=== PATIENT | male | born 1940 ===

== ENCOUNTER 2025-08-04 10:37 | Outpatient (AMB) | payer MEDICARE, SELFPAY ==
--- NOTE | 2025-08-04 10:43 | A.OFFVIS_ITS ---
Intake Visit Reasons: PD, Lumb radic Allergies No Known Allergies Allergy (Verified 08/02/25 08:08) Medication List - Last Reconciled 08/04/25 by Tracie Hernandez MD acetaminophen 500 mg PO Q6H PRN aspirin 81 mg PO DAILY carbidopa-levodopa 25-100 mg 1 tab PO .q 3-4 hrs furosemide 20 mg PO BID metoprolol tartrate 100 mg PO BID pramipexole 0.25 mg PO BEDTIME simvastatin 20 mg PO DAILY tamoxifen 20 mg PO DAILY terazosin 5 mg PO BID tramadol 50 mg PO TID PRN HPI Comments Details: He feels a very slight worsening in balance and occasional drooling. No falls. Very slight intermittent tremor. Taking Carbi/ levodopa every 2.5 hrs for 7 doses. Not using a cane or walker at home , only in the grocery store or for long distance walking. Had a back procedure by Dr. Daniels for Low back pain. After the procedure there is no relief of pain and right leg collapsed and had a right foot drop. More difficulty walking since spinal fracture L2 around June 2023 and had cement put in . Using Tylenol and tramadol q8h. Leaks a bit of urine and uses a pad. Exercising almost every day now. He occasionally has appearance of slight twitch and tremor at the end of his dose. In the last 2 years his gait has changed and he tends to stumble and fall more has become stooped and his posture and scuffs his feet unless he pays attention and doesn't swing his arms and walking. His handwriting has improved. He has no trouble turning in bed or getting in and out of a chair or car. Sometimes he has slight hesitancy and word finding and stutters a bit and his voice has become lower volume no dysphagia or drooling. Several years ago he had a cervical discectomy for left C5-6 radiculopathy by . In 2019 he had decompression of lumbar spinal stenosis. 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 Difficulty getting to sleep?denies.? Difficulty maintaining sleep?denies? .? Urge to move legs?denies.? Teeth grinding?denies.? Shouting or Kicking during sleep?denies.? Abnormal behavior during sleep?denies.? Excessive sleep?denies.? Snoring?denies.? Daytime sleepiness?denies.? ?? General/Constitutional:? Change in appetite?denies.? Chills?denies.? Fatigue?denies.? Fever?denies .? Weight gain?denies.? Weight loss?denies.? ?? Ophthalmologic:? Blurred vision?denies.? Diminished visual acuity?denies.? ?? ENT:? Stuffiness?denies.? Decreased hearing?admits.? Dry mouth?denies.? Ear pain?denies.? Nosebleed?denies.? Ringing in the ears?denies.? Sinus pain?denies .? Sore throat?denies.? Swollen glands?denies.? ?? Endocrine:? Cold intolerance?denies.? Excessive thirst?denies.? Frequent urination? denies.? Heat intolerance?denies.? ?? Respiratory:? Shortness of breath?denies.? Chest pain?denies.? Cough?denies.? ?? Breast:? Breast lump?denies.? Nipple discharge?denies.? ?? Cardiovascular:? Chest pain at rest?denies.? Chest pain with exertion?denies.? Claudication?denies.? Dizziness?denies.? Fluid accumulation in the legs?denies.? Irregular heartbeat?denies.? Palpitations?denies.? ?? Gastrointestinal:? Abdominal pain?denies.? Constipation?denies.? Diarrhea?denies.? Difficulty swallowing?denies.? Heartburn?denies.? Nausea?denies.? Rectal bleeding?denies.? ?? Hematology:? Easy bruising?admits.? Prolonged bleeding?denies.? ?? Genitourinary:? Frequent urination?denies.? Urgency?denies.? Incontinence?denies.? Erectile Dysfunction?admits.? ?? Musculoskeletal:? Neck pain?denies.? Back pain?admits.? Muscle aches?denies.? Painful joint s?denies.? Sciatica?denies.? Weakness?denies.? ?? Podiatric:? Difficulty walking?denies.? Foot numbness?denies.? ?? Neurologic:? Difficulty swallowing?denies.? Balance difficulty?admits.? Coordination? normal.? Difficulty speaking?denies.? Dizziness?denies.? Fainting?denies.? Gait abnormality?admits.? Headache?denies.? Loss of strength?denies.? Loss of use of extremity?denies.? Low back pain?denies.? Memory loss?denies.? Seizures?denies.? Tics?denies.? Tingling/Numbness?denies.? Transient loss of vision?denies.? Tremor?admits.? ?? Psychiatric:? Anxiety?denies.? Auditory/visual hallucinations?denies.? Delusions?denies .? Depressed mood?denies.? Stressors?denies.? Substance abuse?denies.? Suicidal thoughts?denies.? ?? Physical Exam Neuro Other: Neurological: ? Abnormal neurological findings:?Right hip flexor weakness 5-/5,? Dorsiflexor 4-/5, EDB and EHL 3/5 . Stooped posture with mild bradykinesia. Decreased arm swing and slight shuffle. No definite cogwheeling rigidity and no tremor noted today..? Mental Status:?alert and oriented X 3,?Normal attention, orientation, mem ory and affect.? Cranial Nerves:?Pupils are equal, round and reactive to light. Fundoscopy shows normal disc bilaterally. External occular muscles are intact. Visual stinson are full, no ptosis. Face is symmetrical, no facial weakness or droop. Facial sensations are normal. Tongue protrudes in midline. Palate elevates symmetrically. Shoulder shrugging is normal..? Motor Examination:?Normal muscle tone, bulk and strength,?No atrophy or fasciculations,?No drift of the extended upper extremities,?Deep tendon reflexes are 2+?,?Plantars are flexor?.? Straight Leg Raising:?90 degrees.? Sensory Exam:?Normal light touch, temperature, pinprick, vibration and joint-position sensations?,?Rhomberg sign is absent.? Coordination:?no ataxia,?no titubation,?nutzty-fj-hysj, nden-nbaa-wsjz test and rapid alternating movements were normal.? Gait Exam:?Within normal limits.? Cerebellar Signs:?Cadydb-ez-wzsk and zhfn-de-gofk is normal,?no dysdiadochokinesia?.? Extrapyramidal System:?No tremor, rigidity?. No propulsion or retropulsion.? Speech:?Normal,?no dysphasia or dysarthria..? Mini Mental Status Exam: ? Level of Consciousness:?Alert.? Orientation:?Knows correct year, month, date, day and season,?Knows correct city, county and state. Knows correct location and floor.? Registration:?Able to register 3 objects.? Attention:?Serial 7's performed accurately.? Recall:?Able to recall 3 out of 3 objects.? Language:?Normal spontaneous speech, fluency, repetition,naming, compr ehension, reading and writing.? Total Score:?30/30.? General Examination: ? GENERAL APPEARANCE:?normal,?in no acute distress.? HEAD:?normocephalic,?atraumatic.? EYES:?sclera non-icteric,?conjunctiva clear.? EARS:?auditory canal clear,?tympanic membrane intact, clear.? NOSE:?no lesions.? ORAL CAVITY:?gums normal,?mucosa moist,?no lesions.? THROAT:?clear.? NECK/THYROID:?no cervical lymphadenopathy,?thyroid normal,?neck supple, full range of motion,?no carotid bruit.? SKIN:?no rashes,?no significant birthmarks.? HEART:?S1, S2 normal,?no murmurs.? LUNGS:?clear anteriorly and posteriorly.? CHEST:?no gross rib deformity,?clear to auscultation.? BACK:?normal exam of spine.? EXTREMITIES:?no edema.? PERIPHERAL PULSES:?normal.? PSYCH:?alert, oriented,?cognitive function intact,?cooperative with exam.? 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 EMG of the right L4-S1 innervated muscles shows severe active denervation and some reinnervative changes in the right L4-5 innervated muscles. EMG of the left L4-S1 innervated muscles is consistent with distal neuropathic changes and chronic left L5-S1 radiculopathy. Code(s): G62.9 - Polyneuropathy, unspecified Category: Medical (3) Lumbar radiculopathy: Code(s): M54.16 - Radiculopathy, lumbar region Category: Medical Plan reduce pramipexole to 0.125mg as it makes him a bit sleepy. 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
--- OUTSIDE RECORDS SUMMARY | 2025-08-04 12:45 | XMS_ITS | Encounter Summary ---
Author Organization [facility] Address [address] [place] [address] Care Team Providers Care Soft Sugar Supervisor Name Role Phone Sawyer Berry MD Primary Care Provider [phone] Encounter Details Date Type Department Care Team Description 05/31/2022 Nurse Only [facility] Oncology Services [address], [place] [id number] Daphne Bell RN Social History Tobacco Use Types Packs/Day Years Used Date Smoking Tobacco: Former Smokeless Tobacco: Never Alcohol Use Standard Drinks/Week Comments Yes 0 (1 standard drink = 0.6 oz pur e alcohol) Social Sex and Gender Information Value Date Recorded Sex Assigned at Not on file Gender Identity Not on file Sexual Orientation Not on file Job Start Date Occupation Industry Not on file Not on file Not on file COVID-19 Exposure Response Date Recorded In the last 10 days, have yo u been in contact with someone who was confirmed or suspected to have Coronavirus/COVID-19? No / Unsure 05/31/2022 12:56 PM EDT documented as of this encounter Plan of Treatment Not on file documented as of this encounter Visit Diagnoses Not on filedocumented in this encounter Care Teams Soft Sugar Supervisor Relationship Specialty Start Date End Date Sawyer Berry MD PCP - General Bookkeeping Manager 05/23/22 documented as of this encounter
--- OUTSIDE RECORDS SUMMARY | 2025-08-04 12:45 | XMS_ITS ---
Author Name [facility] Organization Unknown Care Team Organization Name Specialty Phone Email Start Date End Da te [facility] PATEL BURNS Primary Care 08/21/20232023 [facility] Amairani Rea MD Primary Care 11/14/2022 04/27/2024 [facility] Cathy Allen Primary Care 07/17/2022 04/27/2024
--- OUTSIDE RECORDS SUMMARY | 2025-08-04 12:46 | XMS_ITS | Clinical Summary ---
Author Organization [facility] Address [address] [place] [address] Care Team Providers Care Rigging Man Name Role Phone Sawyer Berry MD Primary Care Provider [phone] Allergies Active Allergy Reactions Criticality Noted Date Comments Ranolazine 05/16/2022 Medications Medication Sig Dispensed Refills Start Date End Date Status carbidopa-levodopa (SINEMET) 25-100 MG per tablet Take 1 tablet by mouth 4 (four) times a day. 0 04/04/2022 Active clobetasol (TEMOVATE) 0.05 % cream 0 04/03/2022 Active metoprolol tartrate (LOPRESSOR) 100 MG tablet Take 1 tablet (100 mg total) by mouth 2 (two) times a day. 0 05/07/2022 Active simvastatin (ZOCOR) tablet 20 mg Take 1 tablet (20 mg total) by mouth daily. 0 04/19/2022 Active terazosin (HYTRIN) 5 MG capsule Take 1 capsule (5 mg total) by mouth 2 (two) times a day. 0 04/18/2022 Active acetaminophen (TYLENOL) 325 MG tablet Take 2 tablets (650 mg total) by mouth every 6 (six) hours as needed for pain. 0 Active tamoxifen (NOLVADEX) 20 MG tablet TAKE 1 TABLET(20 MG) BY MOUTH DAILY 90 tablet 3 01/17/2024 Active Active Problems No known active problems Family History Medical History Relation Name Comments Cancer Mother Breast and stom ach Relation Name Status Comments Mother Social History Tobacco Use Types Packs/Day Years [...] file Not on file Not on file Last Filed Vital Signs Vital Sign Reading Time Taken Comments Blood Pressure 129/45 06/03/2024 1:53 PM EDT Pulse 56 06/03/2024 1:53 PM EDT Temperature 36.6 C (97.8 F) 06/03/2024 1:53 PM EDT Respiratory Rate - - Oxygen Saturation 99% 06/03/2024 1:53 PM EDT Inhaled Oxygen Concentration - - Weight 73.5 kg (162 lb) 06/03/2024 1:53 PM EDT Height 170.2 cm (5' 7 ) 12/30/2023 10:25 AM EDT Body Mass Index 25.37 12/30/2023 10:25 AM EDT Plan of Treatment Health Maintenance Due Date Last Done Comments Depression Screening 1950 Preventative Health Evaluation 1956 Fall Risk Assessment 2003 RSV Adult > 60+ Yrs or (1 - 1-dose 75+ series) 2013 COVID-19 Vaccine (2024- season) 2025 07/03/2023, 06/27/2022, 06/14/2021 Influenza Vaccine (#1) 2025 , 07/03/2023, 06/27/2022, Additional history exists DTap / Tdap / Td (3 - Td or Tdap) 04/15/2034 04/15/2024, 02/18/2014 Pneumococcal Vaccine Completed 11/28/2015, 02/19/20 14 Shingrix-Zoster Vaccine Completed 12/26/2022, 10/24 Hepatitis B Vaccines Aged Out No long er eligible based on patient's age to complete this topic RSV Ped < 20 months Aged Out No longe r eligible based on patient's age to complete this topic Care Teams Rigging Man Relationship Specialty Start Date End Date Sawyer Berry MD PCP - General Warehouse Order Selector 05/23/22
--- OUTSIDE RECORDS SUMMARY | 2025-08-04 12:46 | XMS_ITS | Encounter Summary ---
Author Organization [facility] Address [address] [place] [address] Care Team Providers Care Data Report Analyst Name Role Phone Nancy Berry MD Primary Care Provider [phone] Encounter Details Date Type Department Care Team (Late st Contact Info) Description 11/25/2024 Lab Requisition [facility] - Main Lab [address] [facility] [place] [address] Aleksey Garcia MD [address] [place] [address] Pathological fracture, unspecified site, initial encounter for fracture Social History Tobacco Use Types Packs/Day Years Used Date Smoking Tobacco: Former Smokeless Tobacco: Never Alcohol Use Standard Drinks/Week Comments Yes 0 (1 standard drink = 0.6 oz pur e alcohol) social Sex and Gender Information Value Date Recorded Sex Assigned at Male 09/18/2024 1:47 PM EST Legal Sex Male 8:30 PM EST Gender Identity Male 09/18/2024 1:47 PM EST Sexual Orientation Straight 09/18/2024 1: 47 PM EST documented as of this encounter Plan of Treatment Upcoming Encounters Date Type Department Care Team (Late st Contact Info) Description 11/16/2025 9:45 AM EDT Office Visit Adult Medicine - [place] [address] [place] [phone] Nancy Berry MD [address] [place] [address] 02/09/2026 10:00 AM EDT Office Visit [facility] Hematology Oncology [address] [place] [address] Henna Haynes MD [address] [place] [address] 03/08/2026 11:00 AM EDT Office Visit General Surgery - [place] [address] [facility] [address] [place] [address] Gita Vo MD [address] [place] [phone] documented as of this encounter Procedures Procedure Name Priority Date/Time Associated Diagnosis Comments COMPLETE BLOOD COUNT Routine 11/25/2024 6:50 AM EDT Pathological fracture, unspecified site, initial encounter for fracture BASIC METABOLIC PANEL Routine 11/25/2024 6:50 AM EDT Pathological fracture, unspecified site, initial encounter for fracture documented in this encounter Results * Basic metabolic panel (11/25/2024 6:50 AM EDT) Sodium 138 133 - 145 mmol/L LAB CHEMISTRY METHOD 11/25/2024 11:[address] [facility] Potassium 4.5 3.5 - 5.5 mmol/L LAB CHEMISTRY METHOD 11/25/2024 11:[address] [facility] Chloride 104 96 - 110 mmol/L LAB CHEMISTRY METHOD 11/25/2024 11:[address] [facility] CO2 27 21 - 32 mmol/L LAB CHEMISTRY METHOD 11/25/2024 11:[address] [facility] Anion Gap 7 3 - 11 LAB CHEMISTRY METHOD 11/25/2024 11:[address] [facility] Glucose 87 70 - 100 mg/dL LAB CHEMISTRY METHOD 11/25/2024 11:[address] [facility] BUN 14 5 - 25 mg/dL LAB CHEMISTRY METHOD 11/25/2024 11:44 AM EDT [facility] Creatinine 0.90 0.70 - 1.30 mg/dL LAB CHEMISTRY METHOD 11/25/2024 11:44 AM EDT [facility] eGFR 83 >=60 mL/min/1. 73m2 LAB CHEMISTRY METHOD 11/25/2024 11:44 AM EDT [facility] Comment:Calculation based on the Chronic Kidney Disease Epidemiology Collaboration (CKD-EPI) equation refit without adjustment for race. BUN/Creatinine Ratio 15.6 LAB CHEMISTRY METHOD 11/25/2024 11:44 AM T [facility] Calcium 8.7 8.5 - 10.5 mg/dL LAB CHEMISTRY METHOD 11/25/2024 11:[address] [facility] Blood Venous blood specimen / Unknown Venipuncture / Unknown 11/25/2024 6:50 AM EDT 11/25/2024 10:19 AM EDT us Aleksey Garcia MD LAB BLOOD ORDERABLES Final Resu lt [facility] [address] [place] [address], * (ABNORMAL) Complete blood count (11/25/2024 6:50 AM EDT) WBC 7.2 4.8 - 10.8 K/mcL LAB HEMETOLOGY METHOD 11/25/2024 10:56 AM EDT [facility] RBC 3.60(L) 4.50 - 5.50 M/mcL LAB HEMETOLOGY METHOD 11/25/2024 10:56 AM EDT [facility] Hemoglobin 11.3(L) 13.5 - 17.5 g/dL LAB HEMETOLOGY METHOD 11/25/2024 10:56 AM T [facility] Hematocrit 34.7(L) 42.0 - 54.0 % LAB HEMETOLOGY METHOD 11/25/2024 10:56 AM EDT [facility] MCV 96.7 79.0 - 98.0 FL LAB HEMETOLOGY METHOD 11/25/2024 10:56 AM EDT [facility] MCH 31.5 27.0 - 32.0 pcg LAB HEMETOLOGY METHOD 11/25/2024 10:56 AM EDT [facility] MCHC 32.6 32.0 - 37.0 g/dL LAB HEMETOLOGY METHOD 11/25/2024 10:56 AM EDT [facility] RDW 12.6 11.0 - 15.0 % LAB HEMETOLOGY METHOD 11/25/2024 10:56 AM EDT [facility] Platelets 175 130 - 400 K/mcL LAB HEMETOLOGY METHOD 11/25/2024 10:56 AM EDT [facility] MPV 10.9 7.0 - 11.0 FL LAB HEMETOLOGY METHOD 11/25/2024 10:56 AM EDT [facility] NRBC 0.0 <1.0 % LAB HEMETOLOGY METHOD 11/25/2024 10:56 AM EDT [facility] NRBC Absolute 0.00 <0.10 K/mcL LAB HEMETOLOGY METHOD 11/25/2024 10:56 AM T [facility] Blood Venous blood specimen / Unknown Venipuncture / Unknown 11/25/2024 6:50 AM EDT 11/25/2024 10:19 AM EDT us Aleksey Garcia MD LAB BLOOD ORDERABLES Final Resu lt [facility] [address] [place] [address], documented in this encounter Visit Diagnoses Diagnosis Pathological fracture, unspecified site, initial encounter for fracture documented in this encounter Care Teams Data Report Analyst Relationship Specialty Start Date End Date Nancy Berry MD [address] [place] [id number] PCP - General Cut Off Man 05/23/22 documented as of this encounter
--- OUTSIDE RECORDS SUMMARY | 2025-08-04 12:46 | XMS_ITS | Encounter Summary ---
Author Organization [facility] Address [address] [place] [address] Care Team Providers Care Lace Cutter Name Role Phone Nancy Berry MD Primary Care Provider [phone] Encounter Details Date Type Department Care Team (Late st Contact Info) Description 12/01/2024 Lab Requisition [facility] - Main Lab [address] [facility] [place] [address] Aleksey Garcia MD [address] [place] [phone] Parkinsonism, unspecified (CMS/HCC V24, CMS/HCC V28) Social History Tobacco Use Types Packs/Day Years [...] AM EDT Office Visit Adult Medicine - [place] [address] [place] [phone] Nancy Berry MD [address] [place] [address] 02/09/2026 10:00 AM EDT Office Visit [facility] Hematology Oncology [address] [place] [phone] Henna Haynes MD [address] [place] [address] 03/08/2026 11:00 AM EDT Office Visit General Surgery - [place] [address] [place] [address] Gita Vo MD [address] [place] [phone] documented as of this encounter Procedures Procedure Name Priority Date/Time Associated Diagnosis Comments COMPLETE BLOOD COUNT Routine 12/01/2024 6:48 AM EDT Parkinsonism, unspecified (CMS/HCC) BASIC METABOLIC PANEL Routine 12/01/2024 6:48 AM EDT Parkinsonism, unspecified ([facility]/HCC) documented in this encounter Results * Basic metabolic panel (12/01/2024 6:48 AM EDT) Sodium 138 133 - 145 mmol/L LAB CHEMISTRY METHOD 12/01/2024 11:06 AM [facility] Potassium 3.5 3.5 - 5.5 mmol/L LAB CHEMISTRY METHOD 12/01/2024 11:06 AM [facility] Chloride 103 96 - 110 mmol/L LAB CHEMISTRY METHOD 12/01/2024 11:06 AM [facility] CO2 28 21 - 32 mmol/L LAB CHEMISTRY METHOD 12/01/2024 11:06 AM [facility] Anion Gap 7 3 - 11 LAB CHEMISTRY METHOD 12/01/2024 11:06 AM [facility] Glucose 90 70 - 100 mg/dL LAB CHEMISTRY METHOD 12/01/2024 11:06 AM [facility] BUN 25 5 - 25 mg/dL LAB CHEMISTRY METHOD 12/01/2024 11:06 AM EDT [facility] Creatinine 1.04 0.70 - 1.30 mg/dL LAB CHEMISTRY METHOD 12/01/2024 11:06 AM EDT [facility] eGFR 70 >=60 mL/min/1. 73m2 LAB CHEMISTRY METHOD 12/01/2024 11:06 AM [facility] Comment:Calculation based on the Chronic Kidney Disease Epidemiology Collaboration (CKD-EPI) equation refit without adjustment for race. BUN/Creatinine Ratio 24.0 LAB CHEMISTRY METHOD 12/01/2024 11:06 AM [facility] Calcium 8.5 8.5 - 10.5 mg/dL LAB CHEMISTRY METHOD 12/01/2024 11:06 AM [facility] Blood Venous blood specimen / Unknown Venipuncture / Unknown 12/01/2024 6:48 AM EDT 12/01/2024 9:06 AM EDT us Aleksey Garcia MD LAB BLOOD ORDERABLES Final Resu lt [facility] [address] [place] [address], * (ABNORMAL) Complete blood count (12/01/2024 6:48 AM EDT) WBC 7.8 4.8 - 10.8 K/mcL LAB HEMETOLOGY METHOD 12/01/2024 10:32 AM EDT [facility] RBC 3.20(L) 4.50 - 5.50 M/mcL LAB HEMETOLOGY METHOD 12/01/2024 10:32 AM EDT [facility] Hemoglobin 9.7(L) 13.5 - 17.5 g/dL LAB HEMETOLOGY METHOD 12/01/2024 10:32 AM [facility] Hematocrit 29.8(L) 42.0 - 54.0 % LAB HEMETOLOGY METHOD 12/01/2024 10:32 AM EDT [facility] MCV 94.6 79.0 - 98.0 FL LAB HEMETOLOGY METHOD 12/01/2024 10:32 AM T [facility] MCH 30.8 27.0 - 32.0 pcg LAB HEMETOLOGY METHOD 12/01/2024 10:32 AM EDT [facility] MCHC 32.6 32.0 - 37.0 g/dL LAB HEMETOLOGY METHOD 12/01/2024 10:32 AM T [facility] RDW 12.2 11.0 - 15.0 % LAB HEMETOLOGY METHOD 12/01/2024 10:32 AM [facility] Platelets 203 130 - 400 K/mcL LAB HEMETOLOGY METHOD 12/01/2024 10:32 AM T [facility] MPV 10.4 7.0 - 11.0 FL LAB HEMETOLOGY METHOD 12/01/2024 10:32 AM EDT [facility] NRBC 0.0 <1.0 % LAB HEMETOLOGY METHOD 12/01/2024 10:32 AM [facility] NRBC Absolute 0.00 <0.10 K/mcL LAB HEMETOLOGY METHOD 12/01/2024 10:32 AM T [facility] Blood Venous blood specimen / Unknown Venipuncture / Unknown 12/01/2024 6:48 AM EDT 12/01/2024 9:06 AM EDT us Aleksey Garcia MD LAB BLOOD ORDERABLES Final Resu lt [facility] [address] [place] [address], documented in this encounter Visit Diagnoses Diagnosis Parkinsonism, unspecified (CMS/HCC V24, CMS/HCC V28) documented in this encounter Care Teams Lace Cutter Relationship Specialty Start Date End Date Nancy Berry MD [address] [place] [id number] PCP - General Obstetric Assistant 05/23/22 documented as of this encounter
--- OUTSIDE RECORDS SUMMARY | 2025-08-04 12:46 | XMS_ITS | Clinical Summary ---
Author Organization [facility] Address [address] [place] [address] Phone Care Team Providers Care Test Carrier Name Role Phone Nancy Berry MD Primary Care Provider [phone] Allergies No known active allergies Medications pramipexole (MIRAPEX) 0.5 mg tablet Take 1 tablet (0.5 mg total) by mouth 1 (one) time each day. Active traMADoL (ULTRAM) 50 mg tablet 10/11/19 24 Active aspirin (Lo-Dose Aspirin) 81 mg EC tablet Take 1 tablet (81 mg total) by mouth. Active terazosin (HYTRIN) 5 mg capsule Take 1 capsule (5 mg total) by mouth. 04/18/20 22 Active carbidopa-levo dopa (SINEMET) 25-100 mg per tablet Take 1 tablet by mouth 5 (five) times a day. 04/04/20 22 Active cyanocobalamin (VITAMIN B-12) 1,000 mcg tablet Take 1 tablet (1,000 mcg total) by mouth. Active docusate sodium (COLACE) 100 mg capsule Take 1 capsule (100 mg total) by mouth. 02/26/20 20 Active acetaminophen (TYLENOL) 325 mg tablet Take 2 tablets (650 mg total) by mouth every 6 (six) hours as needed for pain. Active clobetasoL (TEMOVATE) 0.05 % cream 04/03/20 22 Active simvastatin (ZOCOR) 20 mg tablet TAKE 1 TABLET BY MOUTH DAILY 90 tablet 2 01/19/20 25 Active tamoxifen (NOLVADEX) 20 mg chemo tablet Take 1 tablet (20 mg total) by mouth 1 (one) time each day Take with water or any other nonalcoholic drink with or without food at around the same time(s) every day. 30 tablet 11 01/26/20 25 Active metoprolol tartrate (LOPRESSOR) 50 mg tablet TAKE 1 TABLET(50 MG) BY MOUTH TWICE DAILY 180 tablet 1 07/06/20 25 Active furosemide (LASIX) 20 mg tablet Take 1 tablet (20 mg total) by mouth 2 (two) times a day. 180 tablet 1 07/06/20 25 Active metoprolol tartrate (LOPRESSOR) 50 mg tablet Take 1 tablet (50 mg total) by mouth 2 (two) times a day. 180 tablet 1 12/23/19 25 025 Discontinued Active Problems Problem Noted Date Diagnosed Date Anemia 10/15/2023 Overview (05/19/2025): 07/31, 12/31. 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 Vo of general surgery. [id number]. IHC pending. on neoadjuvant Tamoxifen. Follows up with surgeon Dr. Vo Parkinson's disease ([facility] [place]24, [facility] V28) 1 09/19/2021 Overview (05/05/2024): Currently on Sinemet. Follows up with neurologist Angina of effort ([facility] V24) 03/15/2021 Elevated blood sugar 02/17/2020 Overview (05/05/2024): 02/26 Thrombocytopenia ([facility] V24) 10/02/2017 Overview (05/05/2024): Borderline 09/26 Cervical radiculopathy 01/21/2016 Overview (05/05/2024): Surgery 01/22. Good results forearm and hand. Residual left shoulder weak. BPH (benign prostatic hyperplasia) 02/18/2014 CAD (coronary artery disease) 02/18/2014 Overview (05/05/2024): 2016. Nonobstructive disease on catheterization. Presumed small vessel disease. Hypercholesteremia 02/18/2014 Lumbago 02/18/2014 Overview (05/05/2024): 09/22. Physiatry PSS Lumbar decompression 02/26 Psoriasis 02/18/2014 Overview (05/05/2024): Dr. James Tobacco use disorder 02/18/2014 Overview (05/05/2024): cigars Encounters Date Type Department Care Team Description 07/16/2025 10:50 AM EST Office Visit [facility] [address] [facility] [address] [place] [phone] Allen Thompson MD Coronary artery disease involving cherokee coronary artery of cherokee heart, unspecified whether angina present (Primary Dx); Angina of effort (CMS/HCC V24); Parkinson's disease, unspecified whether dyskinesia present, unspecified whether manifestations fluctuate (CMS/HCC V24, CMS/HCC V28); Hypercholesteremia 05/18/2025 9:30 AM EDT Office Visit Adult Medicine [address] [phone] Nancy Berry MD Hypertension, unspecified type (Primary Dx); Parkinson's disease, unspecified whether dyskinesia present, unspecified whether manifestations fluctuate (CMS/HCC V24, CMS/HCC V28); Coronary artery disease involving cherokee coronary artery of cherokee heart, unspecified whether angina present; Hypercholesteremia; Bilateral hearing loss, unspecified hearing loss type; Edema, unspecified type from Last 3 Months Immunizations Immunization Administration Dates Next Due Influenza Quadravalent, 0.5m l (Fluad) 65yo and older 06/14/2021 Influenza Quadravalent, 0.5m l (Fluzone High-dose) 65yo and older 06/27/2022 Influenza trivalent, 0.5mL ( Fluad) 65yo and older 06/30/2018 Influenza trivalent, 0.5mL ( Fluzone High-dose) 65yo and older 07/03/2023,06/08/2020,07/04/2019,06/12,07/04/2016,06/08/2015 Influenza trivalent, with pr eservative (Fluzone; Afluria) 6mo and older 07/12/2014,06/26/2012,05/31/2011,06/06 Pfizer SARS-CoV-2 COVID-19, mRNA, LNP-S, preservative free 07/03/2023,06/27/2022,06/14/2021 Pneumococcal conjugate 13 va lent (Prevnar 13, PCV13) 2mo and older 11/28/2015 Pneumococcal polysaccharide 23 valent (Pneumovax 23) 2yo and older 02/18/2014 Tdap Tetanus diptheria acell ular pertussis (Boostrix; Adacel) 7yo and older 04/15/2024,02/18/2014 Zoster recombinant (Shingrix ) 19yo and older 12/26/2022,10/24/2022 Family History Medical History Relation Name Comments Cancer Mother Breast and stom ach Relation Name Status Comments Mother Social History Tobacco Use Types Packs/Day Years Used Date Smoking Tobacco: Former Smokeless Tobacco: Never Tobacco Cessation:Counseling Given: Not Answered Alcohol Use Standard Drinks/Week Comments Not Currently 0 (1 standard drink = 0.6 oz pur e alcohol) social Sex and Gender Information Value Date Recorded Sex Assigned at Male 09/18/2024 1:47 PM EST Legal Sex Male 8:30 PM EST Gender Identity Male 09/18/2024 1:47 PM EST Sexual Orientation Straight 09/18/2024 1: 47 PM EST Obstetrics History Last Filed Vital Signs Vital Sign Reading Time Taken Comments Blood Pressure 160/72 07/16/2025 10:47 AM EST Pulse 57 07/16/2025 10:47 AM EST Temperature 36.7 C (98 F) 05/18/2025 9:31 AM EDT Respiratory Rate - - Oxygen Saturation 99% 07/16/2025 10:47 AM EST Inhaled Oxygen Concentration - - Weight 71.7 kg (158 lb) 07/16/2025 10:47 AM EST Height 170.2 cm (5' 7 ) 07/16/2025 10:47 AM EST Body Mass Index 24.75 07/16/2025 10:47 AM EST Plan of Treatment Upcoming Encounters Date Type Department Care Team (Late st Contact Info) Description 11/16/2025 9:45 AM EDT Office Visit Adult Medicine - [place] [address] [place] [phone] Nancy Berry MD [address], [place] [phone] 02/09/2026 10:00 AM EDT Office Visit [facility] Oncology [address] [place] [address] Henna Haynes MD [address] [place] [address] 03/08/2026 11:00 AM EDT Office Visit General Surgery - [place] [address] [facility] [address] [place] [address] Gita Vo MD [address] [place] [phone] Health Maintenance Due Date Last Done Comments RSV Immunization Adult Patients (1 - 1-dose 75+ series) 2013 Falls Risk Assessment 08/17/2022 Medicare Annual Wellness Visit 08/17/2022 Social Influencers of Health Screening 08/17/2022 COVID-19 Vaccine (9 - Pfizer risk 2024- season) 2025 06/04/2025, 06/03/2024, 07/03/2023, Additional history exists Hypertension/CHF/CAD Annual BMP Blood Test 05/18/2026 05/18/2025, 12/01/2024, 11/25/2024, Additional history exists Cholesterol Screening (Lipid Panel) 05/18/2030 05/18/2025, 10/06/2024, 04/15/2024 DTaP,Tdap,and Td Vaccines (3 - Td or Tdap) 04/15/2034 04/15/2024, 02/18/2014 Pneumococcal Vaccine: 50+ Years Completed 11/28/2015, 02/18/2014 Zoster Vaccines Completed 12/26/2022, 10/24/2022 Depression Screening Completed 05/17/2025 Influenza Vaccine Completed 06/04/2025, , 07/03/2023, Additional history exists HIB Vaccines Aged Out No longer eligi ble based on patient's age to complete this topic HPV Vaccines Aged Out No longer eligi ble based on patient's age to complete this topic Hepatitis A Vaccines Aged Out No long er eligible based on patient's age to complete this topic Hepatitis B Vaccines Aged Out No long er eligible based on patient's age to complete this topic IPV Vaccines Aged Out No longer eligi ble based on patient's age to complete this topic MMR Vaccines Aged Out No longer eligi ble based on patient's age to complete this topic Meningococcal ACWY Vaccine Aged Out N o longer eligible based on patient's age to complete this topic Meningococcal B Vaccine Aged Out No l onger eligible based on patient's age to complete this topic RSV Immunization Patients Under 20 months Aged Out No longer eligible based on patient's age to complete this topic Varicella Vaccines Aged Out No longer eligible based on patient's age to complete this topic Procedures Procedure Name Priority Date/Time Associated Diagnosis Comments CBC WITH AUTO DIFFERENTIAL Routine 05/18/2025 10:02 AM EDT Coronary artery disease involving cherokee coronary artery of cherokee heart, unspecified whether angina present Thrombocytopenia (CMS/[facility] V24) Hypertension, unspecified type HEMOGLOBIN A1C Routine 05/18/2025 10:02 AM EDT Elevated blood sugar LIPID PANEL WITH REFLEX TO DIRECT LDL Routine 05/18/2025 10:02 AM EDT Coronary artery disease involving cherokee coronary artery of cherokee heart, unspecified whether angina present Hypercholesteremia COMPREHENSIVE METABOLIC PANEL Routine 05/18/2025 10:02 AM EDT Coronary artery disease involving cherokee coronary artery of cherokee heart, unspecified whether angina present Hypercholesteremia Hypertension, unspecified type CBC AND DIFFERENTIAL Routine 05/18/2025 10:02 AM EDT Coronary artery disease involving cherokee coronary artery of cherokee heart, unspecified whether angina present Thrombocytopenia (CMS/[facility] V24) Hypertension, unspecified type from Last 3 Months Results * Lipid panel with reflex to direct LDL (05/18/2025 10:02 AM EDT) Cholesterol 83 0 - 200 mg/dL LAB CHEMISTRY METHOD 05/18/2025 1:46 PM EDT [facility] Triglycerides 76 0 - 150 mg/dL LAB CHEMISTRY METHOD 05/18/2025 1:46 PM EDT [facility] HDL 40 >=40 mg/dL LAB CHEMISTRY METHOD 05/18/2025 1:46 PM EDT [facility] LDL Calculated 28 0 - 100 mg/dL LAB CHEMISTRY METHOD 05/18/2025 1:46 PM EDT [facility] Comment:Estimated LDL Calcul ated using equation: Total cholesterol - HDL cholesterol - (Triglycerides/5) VLDL Cholesterol Navi 15.2 mg/dL LAB CHEMISTRY METHOD 05/18/2025 1:46 PM EDT [facility] Non HDL Chol. (LDL+VLDL) 43 <145 mg/dL LAB CHEMISTRY METHOD 05/18/2025 1:46 PM EDT [facility] Chol/HDL Ratio 2.1 0.0 - 4.4 LAB CHEMISTRY METHOD 05/18/2025 1:46 PM EDT [facility] Blood Venous blood specimen / Unknown Venipuncture / Unknown 05/18/2025 10:02 AM EDT 05/18/2025 10:02 AM EDT C Avi Berry MD LAB BLOOD ORDERABLES Final Res ult [facility] [address] [place] [address], [place] [phone] * (ABNORMAL) CBC auto differential (05/18/2025 10:02 AM EDT) [facility] WBC 6.4 4.8 - 10.8 K/mcL LAB HEMETOLOGY METHOD 05/18/2025 12:18 PM [facility] RBC 3.40(L) 4.50 - 5.50 M/mcL LAB HEMETOLOGY [facility] Hemoglobin 10.2(L) 13.5 - 17.5 g/dL LAB HEMETOLOGY METHOD 05/18/2025 12:18 PM [facility] Hematocrit 31.9(L) 42.0 - 54.0 % LAB HEMETOLOGY METHOD 05/18/2025 12:18 PM [facility] MCV 95.2 79.0 - 98.0 FL LAB HEMETOLOGY METHOD 05/18/2025 12:18 PM [facility] MCH 30.4 27.0 - 32.0 pcg LAB HEMETOLOGY METHOD 05/18/2025 12:18 PM [facility] MCHC 32.0 32.0 - 37.0 g/dL LAB HEMETOLOGY METHOD 05/18/2025 12:18 PM [facility] RDW 13.5 11.0 - 15.0 % LAB HEMETOLOGY METHOD 05/18/2025 12:18 PM [facility] Platelets 137 130 - 400 K/mcL LAB HEMETOLOGY METHOD 05/18/2025 12:18 PM [facility] MPV 10.4 7.0 - 11.0 FL LAB HEMETOLOGY METHOD 05/18/2025 12:18 PM [facility] NRBC 0.0 <1.0 % LAB HEMETOLOGY METHOD 05/18/2025 12:18 PM [facility] NRBC Absolute 0.00 <0.10 K/mcL LAB HEMETOLOGY METHOD 05/18/2025 12:[facility] Neutrophils Relative 55.0 % LAB HEMETOLOGY METHOD 05/18/2025 12:18 PM [facility] Lymphocytes Relative 29.4 % LAB HEMETOLOGY METHOD 05/18/2025 12:18 PM [facility] Monocytes Relative 10.0 % LAB HEMETOLOGY METHOD 05/18/2025 12:18 PM [facility] Eosinophils Relative 4.4 % LAB HEMETOLOGY METHOD 05/18/2025 12:18 PM [facility] Basophils Relative 0.9 % LAB HEMETOLOGY METHOD 05/18/2025 12:18 PM [facility] Immature Granulocytes Relative 0.3 % LAB HEMETOLOGY METHOD 05/18/2025 12:18 PM [facility] Neutrophils Absolute 3.52 1.50 - 7.00 K/mcL LAB HEMETOLOGY METHOD 05/18/2025 12:18 PM [facility] Lymphocytes Absolute 1.88 1.00 - 5.00 K/mcL LAB HEMETOLOGY METHOD 05/18/2025 12:18 PM [facility] Monocytes Absolute 0.64 0.20 - 1.00 K/mcL LAB HEMETOLOGY METHOD 05/18/2025 12:18 PM [facility] Eosinophils Absolute 0.28 0.00 - 0.50 K/mcL LAB HEMETOLOGY METHOD 05/18/2025 12:18 PM [facility] Basophils Absolute 0.06 0.00 - 0.20 K/mcL LAB HEMETOLOGY METHOD 05/18/2025 12:18 PM [facility] Immature Granulocytes Absolute 0.02 0.00 - 0.03 K/mcL LAB HEMETOLOGY METHOD 05/18/2025 12:18 PM EDT [facility] Blood Venous blood specimen / Unknown Venipuncture / Unknown 05/18/2025 10:02 AM EDT 05/18/2025 10:02 AM EDT Nancy Berry MD LAB BLOOD ORDERABLES Final Res ult Performing Organization Address City/[facility]/ZIP Co de Phone Number [facility] [address] [place] [address], [place] [phone] * Hemoglobin A1c (05/18/2025 10:02 AM EDT) Hemoglobin A1C 5.9 <6.5 % LAB CHEMISTRY METHOD 05/18/2025 5:36 PM EDT [facility] Mean Bld Glu Estim. 123 mg/dL LAB CHEMISTRY METHOD 05/18/2025 5:36 PM EDT [facility] Blood Venous blood specimen / Unknown Venipuncture / Unknown 05/18/2025 10:02 AM EDT 05/18/2025 10:02 AM EDT us Nancy Berry MD LAB BLOOD ORDERABLES Final Res ult Performing Organization Address [facility]/ZIP Co de Phone Number [facility] [address] [place] [address], [place] [phone] * (ABNORMAL) Comprehensive metabolic panel (05/18/2025 10:02 AM EDT) Sodium 139 133 - 145 mmol/L LAB CHEMISTRY METHOD 05/18/2025 1:46 PM EDT [facility] Potassium 4.5 3.5 - 5.5 mmol/L LAB CHEMISTRY METHOD 05/18/2025 1:46 PM EDT [facility] Chloride 106 96 - 110 mmol/L LAB CHEMISTRY METHOD 05/18/2025 1:46 PM EDT [facility] CO2 28 21 - 32 mmol/L LAB CHEMISTRY METHOD 05/18/2025 1:46 PM [facility] Anion Gap 5 3 - 11 LAB CHEMISTRY METHOD 05/18/2025 1:46 PM [facility] Glucose 96 70 - 100 mg/dL LAB CHEMISTRY METHOD 05/18/2025 1:46 PM [facility] BUN 31(H) 5 - 25 mg/dL LAB CHEMISTRY METHOD 05/18/2025 1:46 PM [facility] Creatinine 1.20 0.70 - 1.30 mg/dL LAB CHEMISTRY METHOD 05/18/2025 1:46 PM [facility] eGFR 59(L) >=60 mL/min/1. 73m2 LAB CHEMISTRY METHOD 05/18/2025 1:46 PM [facility] Comment:Calculation based on the Chronic Kidney Disease Epidemiology Collaboration (CKD-EPI) equation refit without adjustment for race. BUN/Creatinine Ratio 25.8 LAB CHEMISTRY METHOD 05/18/2025 1:46 PM [facility] Calcium 8.5 8.5 - 10.5 mg/dL LAB CHEMISTRY METHOD 05/18/2025 1:46 PM [facility] AST (SGOT) 15 10 - 42 unit/L LAB CHEMISTRY METHOD 05/18/2025 1:46 PM [facility] ALT (SGPT) 10 10 - 60 unit/L LAB CHEMISTRY METHOD 05/18/2025 1:46 PM [facility] Alkaline Phosphatase 60 42 - 121 unit/L LAB CHEMISTRY METHOD 05/18/2025 1:46 PM [facility] Total Protein 5.8(L) 6.0 - 8.0 g/dL LAB CHEMISTRY METHOD 05/18/2025 1:46 PM [facility] Albumin 4.2 3.2 - 5.0 g/dL LAB CHEMISTRY METHOD 05/18/2025 1:46 PM [facility] Total Bilirubin 0.6 0.0 - 1.4 mg/dL LAB CHEMISTRY METHOD 05/18/2025 1:46 PM EDT [facility] Blood Venous blood specimen / Unknown Venipuncture / Unknown 05/18/2025 10:02 AM EDT 05/18/2025 10:02 AM EDT Nancy Berry MD LAB BLOOD ORDERABLES Final Res ult [facility] [address] [place] [address], [place] [phone] from Last 3 Months Insurance [employer] Care Teams Test Carrier Relationship Specialty Start Date End Date Nancy Berry MD [address] [place] [id number] PCP - General Circuit Recorder 05/23/22
== END 2025-08-04 11:04 | disposition home or self-care (01) ==
PROVIDERS: Visit Provider Psychiatry & Neurology Neurology
DX: G20.B1 Parkinson's disease with dyskinesia, without mention of fluctuations (principal); G62.9 Polyneuropathy, unspecified; M54.16 Radiculopathy, lumbar region
CPT/HCPCS: 99214

== ENCOUNTER → 2025-08-04 10:37 | Outpatient (BNVA) | payer MEDICARE, SELFPAY | PROVIDERS: Visit Provider Psychiatry & Neurology Neurology | DX: G20.B1 Parkinson's disease with dyskinesia, without mention of fluctuations (principal); G62.9 Polyneuropathy, unspecified; M54.16 Radiculopathy, lumbar region; Z79.899 Other long term (current) drug therapy | CPT/HCPCS: 99212 ==